=== PATIENT | female | born 2000 | race Caucasian/White ===

== ENCOUNTER 2021-03-07 16:05 | Inpatient (IN) | payer OTHER ==
[~2021-03-07] VITALS: Ht 167.6 cm; Wt 59.7 kg
[~2021-03-07 16:05] MED LIST: AMOX500 PO; AMOX50SU PO; Augmentin 875-1 EACH PO; CODACEE120 PO; IBUP600 PO; Norco 5-325 Ta1 EACH PO; Percocet 5-3251 EACH PO; RXAMOX250S PO; Zofran8 MG PO
[2021-03-07 16:48] LABS: BASOPHILS ABSOLUTE AUTO 0.12 K/mm3 (0.00-0.23); BASOPHILS PERCENT AUTO 1 % (0-2); EOSINOPHILS ABSOLUTE AUTO 0.02 K/mm3 (0.00-0.68); EOSINOPHILS PERCENT AUTO 0 % (0-6); Hemoglobin 17.6 g/dL (11.5-16.0); IMMATURE GRAN ABSOLUTE AUTO 0.15 K/mm3 (0.00-0.10); IMMATURE GRAN PERCENT AUTO 1 % (0-1); LYMPHOCYTES ABSOLUTE AUTO 3.74 K/mm3 (0.84-5.20); LYMPHOCYTES PERCENT AUTO 19 % (21-46); MONOCYTES PERCENT AUTO 6 % (4-13); Mean Corpuscular HGB 29.4 pg (26.0-34.0); Mean Corpuscular HGB Conc 34.5 g/dL (31.5-36.5); Mean Corpuscular Volume 85 fL (80-100); Mean Platelet Volume 11.8 fL (9.1-12.4); NEUTROPHILS ABSOLUTE AUTO 14.08 K/mm3 (1.96-9.15); NEUTROPHILS PERCENT AUTO 73 % (41-73); Platelet Count 530 K/mm3 (150-400); RDW Coefficient Variation 11.8 % (11.7-14.2); RDW Standard Deviation 36.2 fL (35.1-46.3); Red Blood Cell Count 5.99 M/mm3 (3.80-5.20); White Blood Cell Count 19.31 K/mm3 (4.00-11.30)
[2021-03-07 17:01] LABS: Alanine Aminotransfer (ALT/SGP 24 U/L (12-78); Albumin, Blood 5.1 g/dL (3.4-5.0); Albumin/Globulin Ratio 1.1 (0.8-1.8); Alk Phos 95 U/L (50-136); Anion Gap 20 mmol/L (6-16); Aspartate Aminotrans (AST/SGOT 11 U/L (12-37); Bilirubin, Total 0.9 mg/dL (0.1-1.0); Blood Urea Nitrogen 15 mg/dL (8-24); Bun/Creatinine Ratio 15.1 (12.0-20.0); CO2, Blood 11 mmol/L (21-32); Calcium, Blood 10.1 mg/dL (8.5-10.1); Chloride, Blood 99 mmol/L (98-108); Creatinine, Blood 0.99 mg/dL (0.40-1.00); Globulin, Blood 4.7 g/dL (2.2-4.0); Glomerular Filtration Rate >60 (60-); Glucose, Blood 512 mg/dL (70-99); Potassium, Blood 4.9 mmol/L (3.5-5.5); Sodium, Blood 130 mmol/L (136-145); Total Protein, Blood 9.8 g/dL (6.4-8.2)
[2021-03-07] MEDS ORDERED: LEVONOR-ETH ES1 EAC5 PO (17:08)
[2021-03-07 17:29] LABS: Source, Urine Clean Catch
[2021-03-07 17:36] LABS: Appearance, Urine Clear (Clear); Bilirubin, Urine Neg (Neg); Blood, Urine 3+ (Neg); Glucose Qualitative, Urine 4+ (Neg); Ketones, Urine 4+ (Neg); Leukocyte Esterase, Urine Neg (Neg); Nitrite, Urine Neg (Neg); Protein, Urine 4+ (Neg); Urobilinogen, Urine NORM (Normal)
[2021-03-07 17:52] LABS: Color, Urine Pale Yellow (P-Yellow)
[2021-03-07 17:55] LABS: Granular Casts 0-2 /lpf (0)
[2021-03-07 17:57] LABS: Bacteria Few /hpf; Squamous Epithelial Cells Few /hpf (Few)
[2021-03-07 20:25] LABS: Anion Gap 17 mmol/L (6-16); Blood Urea Nitrogen 11 mg/dL (8-24); Bun/Creatinine Ratio 15.3 (12.0-20.0); CO2, Blood 9 mmol/L (21-32); Calcium, Blood 8.4 mg/dL (8.5-10.1); Chloride, Blood 106 mmol/L (98-108); Creatinine, Blood 0.72 mg/dL (0.40-1.00); Glomerular Filtration Rate >60 (60-); Glucose, Blood 476 mg/dL (70-99); Potassium, Blood 4.4 mmol/L (3.5-5.5); Sodium, Blood 132 mmol/L (136-145)
--- NOTE | 2021-03-07 20:30 | NUR ---
ASSUMED CARE NOTE: ASSUMED CARE OF PT AT 2029, RECEIVED REPORT FROM JAZ CLEVELAND. PT TRANSFERED SELF TO UNIT BED, PT IS STEADY ON HER FEET. PT IS A/OX4. PT ON RA WITH SPO2 ABOVE 90% NO DISTRESS NOTED. PT DENIES ANY NAUSEA AT THIS TIME. PT STARTED ON INSULIN DRIP ON ARRIVAL TO UNIT AT 1U/HR. NS RUNNING AT 200ML/HR. PT ORIENTED TO ROOM, CALL LIGHT WITHIN REACH.
[2021-03-08 00:09] LABS: Anion Gap 10 mmol/L (6-16); Blood Urea Nitrogen 9 mg/dL (8-24); Bun/Creatinine Ratio 13.9 (12.0-20.0); CO2, Blood 13 mmol/L (21-32); Calcium, Blood 7.9 mg/dL (8.5-10.1); Chloride, Blood 113 mmol/L (98-108); Creatinine, Blood 0.65 mg/dL (0.40-1.00); Glomerular Filtration Rate >60 (60-); Glucose, Blood 298 mg/dL (70-99); Sodium, Blood 136 mmol/L (136-145)
--- NOTE | 2021-03-08 02:50 | NUR ---
UPDATE: PT CBG LESS THAN 200, NS IV INFUSION STOPPED AND FLUIDS CHANGED TO D5w1/2NS AT 150ML/HR.
[2021-03-08 04:38] LABS: Anion Gap 9 mmol/L (6-16); Blood Urea Nitrogen 8 mg/dL (8-24); Bun/Creatinine Ratio 13.4 (12.0-20.0); CO2, Blood 13 mmol/L (21-32); Calcium, Blood 7.5 mg/dL (8.5-10.1); Chloride, Blood 116 mmol/L (98-108); Glomerular Filtration Rate >60 (60-); Glucose, Blood 233 mg/dL (70-99); Potassium, Blood 3.6 mmol/L (3.5-5.5); Sodium, Blood 138 mmol/L (136-145)
--- NOTE | 2021-03-08 05:47 | NUR ---
END OF SHIFT REPORT: PT CONTINUES TO BE ON INSULIN DRIP, CBG Q1H CHECKS. SEE LABS. NO SIGNIFICANT CHANGES. PT HAS BEEN IN SR-ST WITH HR BETWEEN 90 AND 120 WHEN UP AND AMBULATING. BP STABLE. PT C/O OF NAUSEA, ZOFRAN GIVEN WITH GOOD EFFECT. LAST BM ON THE 03/03, PT WILLING TO TAKE MIRALAX THIS AM. PT IS STEADY ON HER FEET, HOWEVER REQUIRES ASSISTANCE WITH LINES. WILL CONTINUE TO MONITOR UNTIL REPORT IS GIVEN TO ONCOMING SHIFT.
--- NOTE | 2021-03-08 07:30 | NUR ---
Assumed care of this pt this morning. She is a/o x 4 and denies any pain or discomfort. Her CBG this morning is 157 and her insulin drip is being titrated as ordered. IV fluids are infusing. She is able to make her needs known and is up watching tv in her bed.
[2021-03-08 13:46] LABS: Anion Gap 7 mmol/L (6-16); Blood Urea Nitrogen 6 mg/dL (8-24); Bun/Creatinine Ratio 9.5 (12.0-20.0); CO2, Blood 18 mmol/L (21-32); Calcium, Blood 8.1 mg/dL (8.5-10.1); Chloride, Blood 112 mmol/L (98-108); Creatinine, Blood 0.63 mg/dL (0.40-1.00); Glomerular Filtration Rate >60 (60-); Glucose, Blood 171 mg/dL (70-99); Sodium, Blood 137 mmol/L (136-145)
--- NOTE | 2021-03-08 13:49 | NUR ---
Lab results called in to Dr Bolanos and he said he is going to input orders for insulin. Pt has been updated.
--- NOTE | 2021-03-08 17:16 | NUR ---
Shift Summary Pt has been a/o all day. She started the shift on the insulin drip and as her blood sugars and labs stabilized, Dr Bolanos was called and input orders as reflected on the EMAR. Her CBGS are now ACHS with a low sliding scale AC. This nurse has done extensive diabetic education with the patient as well as the lathe winder this morning. Her mom was here this afternoon and has been updated and spoke with Dr Bolanos as well. The pt is perceptive to learning about her new diagnosis and how she will continue to manage her blood sugar after she dcs from the hospital. She has a good appetite. She has been up ambulating to the toilet with cord management. The pt is very pleasant and cooperative with her care, she is able to make her needs known and calls appropriately. She is medical status and has been assigned room 333 and is texting her mom to let her know about the room change. The room is being cleaned and then she will be transferred upstairs.
[2021-03-08 17:38] LABS: Anion Gap 9 mmol/L (6-16); Blood Urea Nitrogen 6 mg/dL (8-24); Bun/Creatinine Ratio 7.8 (12.0-20.0); CO2, Blood 16 mmol/L (21-32); Calcium, Blood 8.2 mg/dL (8.5-10.1); Chloride, Blood 111 mmol/L (98-108); Creatinine, Blood 0.77 mg/dL (0.40-1.00); Glomerular Filtration Rate >60 (60-); Glucose, Blood 288 mg/dL (70-99); Potassium, Blood 3.7 mmol/L (3.5-5.5); Sodium, Blood 136 mmol/L (136-145)
--- NOTE | 2021-03-08 18:44 | NUR ---
PT ARRIVED TO ROOM 333 FROM ICU 11 VIA W/C. ABLE TO STAND AND TRANSFER TO BED BY HERSELF. INDEPENDENT WITH ADL'S IN ROOM. ORIENTED TO ROOM, PHONE AND CALL ARELLANO. BED IN LOWEST POSITION AND CALL ARELLANO IN REACH. WILL MONITOR
--- NOTE | 2021-03-08 19:05 | NUR ---
ASSUMED CARE RECEIVED REPORT FROM CRISTOFER SNOW. PT RESTING, IN NAD. REQUESTING TO SHOWER; WILL ASSIST PT WITH SET UP. NO OTHER ACUTE NEEDS AT THIS TIME. CALL LIGHT, POSSESSIONS IN REACH. PT INDEPENDENT IN ROOM.
[2021-03-09 05:43] LABS: Anion Gap 9 mmol/L (6-16); Blood Urea Nitrogen 8 mg/dL (8-24); Bun/Creatinine Ratio 13.7 (12.0-20.0); CO2, Blood 18 mmol/L (21-32); Calcium, Blood 7.8 mg/dL (8.5-10.1); Chloride, Blood 114 mmol/L (98-108); Creatinine, Blood 0.58 mg/dL (0.40-1.00); Glomerular Filtration Rate >60 (60-); Glucose, Blood 275 mg/dL (70-99); Potassium, Blood 3.5 mmol/L (3.5-5.5); Sodium, Blood 141 mmol/L (136-145)
--- NOTE | 2021-03-09 07:12 | NUR ---
SLOT TAG INSERTER SUMMARY PT RESTING, IN NAD. VS REVIEWED,WNL. CBGS IMPROVING THIS AM. NO OTHER ACUTE CHANGES IN CONDITION NOTED OVERNIGHT. PT REMAINS INDEPENDENT IN ROOM. NO ACUTE NEEDS ASSESSED AT THIS TIME. CALL LIGHT, POSSESSIONS IN REACH, BED IN LOW AND LOCKED POSITION. REPORT GIVEN TO CRISTOFER KAYE.
--- NOTE | 2021-03-09 19:29 | NUR ---
PT RESTING IN BED AFTER DINNER AND PM MEDICATION ADMIN. PT REMAINS IND IN ROOM AND ALERT AND ORIENTED X4. PT SELF JEFFREY LANCET AND INSULIN THIS SHIFT. PT STATES HER ANXIETY HAS GONE DOWN AND LOOKS FORWARD TO GOING HOME. PT EDUCATED ON THE IMPORTANCE OF DIABETIC CARE AND IS CAREPLAN COMPLIANT. STAFF WILL CONT. TO MONITOR.
--- NOTE | 2021-03-10 00:30 | NUR ---
03/09/212044 Patient is alert and oriented. She is on her mensus but declines any meds or heating pad for cramps. Patient states she is nervous that she won't be able to be discharged tomorrow. Patient is doing own blood sugar checks and giving own insulin, technique is good. Pt is independant in room. Physical assessment is WNL. Pt given protein snack. Call light in reach.
--- NOTE | 2021-03-10 05:41 | NUR ---
Rn summary: Pt has rested well, has not had any issues this shift. Patient vital signs stable. Pt very hopeful to go home today. Call light in reach.
[2021-03-10] MEDS ORDERED: INSULANPEN SC (10:13)
[2021-03-10] MEDS ORDERED: HUMALOG JU100 UNIT/2 SC (10:19)
--- NOTE | 2021-03-10 11:15 | NUR ---
SUMMARY/DISCHARGE PT DISCHARGED TO HOME WITH HER MOM, PT HAS BEEN ALERT AND ORIENTED, INDEPENDENT IN THE ROOM, ABLE TO CHECK HER OWN CBG AND ADMINISTER HER OWN INSULIN, PT VERBALIZED UNDERSTANDING OF DISCHARGE ORDERS REGARDING MEDS AND FOLLOW UP, PT DECLINED A WHEELCHAIR AND WAS ABLE TO AMBULATE SAFELY TO THE ELEVATORS WITH HER MOM
== END 2021-03-10 11:02 | disposition home or self-care (01) | DRG 639 ==
LOC: ER 16:05 → ICUW 18:24 → ICUE 20:26 → ICUW 03-08 07:29 → MEDS 03-08 18:34
PROVIDERS: Emergency Medicine; Internal Medicine; Physician Assistant; ADMIT Internal Medicine
DX: E11.10 Type 2 diabetes mellitus with ketoacidosis without coma (principal); E86.0 Dehydration
CPT/HCPCS: 36415; 80048; 80053; 81001; 81025; 82947; 83036; 83690; 84443; 85025; 87086; 93005; 93010; 96361; 96374; 99285-25; A9270; J1815; J2405; J7030; J7042; J7120

== ENCOUNTER → 2023-03-12 | Outpatient (CLI) | payer BC, OTHER ==
[~2023-03-12] MED LIST changes: +HUMALOG JU100 UNIT/2 SC; +INSULANPEN SC; +LEVONOR-ETH ES1 EAC5 PO
== END | disposition home or self-care (01) ==
LOC: LAB SHORT 10:54 → LAB 10:54
DX: Z34.91 Encounter for supervision of normal pregnancy, unspecified, first trimester (principal)
CPT/HCPCS: 84702

== ENCOUNTER → 2023-09-17 | Outpatient (CLI) | payer BC, OTHER ==
[2023-09-17 14:43] LABS: Protein, Urine Quantitative 10.8 mg/dL (0.0-11.9)
== END | disposition home or self-care (01) ==
LOC: LAB SHORT 09:37 → EDSTATUS 09-09 13:10 → LAB FUT 09-09 13:10
PROVIDERS: Family Medicine
DX: O24.011 Pre-existing type 1 diabetes mellitus, in pregnancy, first trimester (principal); E10.9 Type 1 diabetes mellitus without complications
CPT/HCPCS: 81050; 84156